=== PATIENT | female | born 1990 ===

== ENCOUNTER 2016-11-26 23:00 | Emergency (ER) | payer SELFPAY ==
[2016-11-26] MEDS ORDERED: Ketorolac 10 MG Tab PO ONE (23:01)
[2016-11-26] MEDS ORDERED: Ketorolac 60 MG/2 ML SDV IM ONE (23:59)
[2016-11-27] MEDS ORDERED: Take Home: Ketorolac 10 MG Tab, 4 Tab Pack PO ONE (00:10)
--- NOTE | 2016-11-27 00:10 | EDM.PDOC ---
ED HPI GENERAL MEDICAL PROBLEM - General Chief Complaint: General Stated Complaint: RIB PAIN Time Seen by Provider: 11/26/16 23:05 Source of Information: Reports: Patient, EMS History Limitations: Reports: No Limitations - History of Present Illness INITIAL COMMENTS - FREE TEXT/NARRATIVE: patient presents to ED with complaints of right rib pain. States fell 3 days ago. Tripped on the curb and landed on her right side. States pain has gotten worse over the last 3 days. Has been taking tylenol and ibuprofen for the discomfort. Denies cough, hemoptysis or injury elsewhere. Does have a small bruise on her cheek, she is unsure if occurred with same event. Onset: Gradual Duration: Day(s): Location: Reports: Chest Quality: Reports: Sharp, Throbbing Severity: Moderate Improves with: Reports: Rest Worsens with: Reports: Movement Right Chest Pain Score (Numeric/FACES): 6 - Related Data Allergies Allergy/AdvReac Type Severity Reaction Status Date / Time No Known Allergies Allergy Verified 11/27/16 05:10 Home Meds: Home Meds . [No Known Home Meds] 12/28/15 [History] Past Medical History - Past Health History Medical/Surgical History: Denies Medical/Surgical History Gastrointestinal History: Reports: GERD WILD [employer] History: Reports: Other OB/BYN History: birthed 2 viable children Psychiatric History: Reports: Anxiety, Depression Social & Family History - Family History Family Medical History: Noncontributory - Tobacco Use Smoking Status *Q: Current Every Day Smoker Years of Tobacco use: 7 Packs/Tins Daily: 0.5 Used Tobacco, but Quit: No Second Hand Smoke Exposure: Yes - Caffeine Use Caffeine Use: Reports: Coffee, Energy Drinks, Soda, Tea - Alcohol Use Days Per Week of Alcohol Use: 0 Number of Drinks Per Day: 0 Total Drinks Per Week: 0 - Recreational Drug Use Recreational Drug Use: No ED ROS GENERAL - Review of Systems Review Of Systems: See Below Constitutional: Denies: Fever, Chills, Malaise, Weakness HEENT: Denies: Ear Discharge, Ear Pain, Rhinitis, Throat Pain, Vertigo Respiratory: Reports: Pleuritic Chest Pain. Denies: Shortness of Breath, Cough Cardiovascular: Denies: Chest Pain, Edema, Lightheadedness Endocrine: Denies: Fatigue GI/Abdominal: Denies: Abdominal Pain, Nausea, Vomiting : Reports: No Symptoms Musculoskeletal: Reports: No Symptoms Skin: Reports: No Symptoms Neurological: Reports: No Symptoms ED EXAM, GENERAL - Physical Exam Exam: See Below Exam Limited By: No Limitations General Appearance: Alert, WD/WN, No Apparent Distress Ears: Normal External Exam, Normal TMs Nose: Normal Inspection, Normal Mucosa, No Blood Throat/Mouth: Normal Inspection, Normal Oropharynx Head: Normocephalic Neck: Normal Inspection, Supple, Non-Tender Respiratory/Chest: No Respiratory Distress, Lungs Clear, Normal Breath Sounds, Other (Patient tender with palpation to right axilla, rib cage. No obvious bruising noted. No swelling.) Cardiovascular: Regular Rate, Rhythm GI/Abdominal: Normal Bowel Sounds, Soft, Non-Tender Extremities: Normal Inspection, Normal Range of Motion Neurological: Alert, Oriented Course - Vital Signs Last Recorded V/S: Last Vital Signs Temp 98.2 F 11/27/16 05:11 Pulse 72 11/27/16 05:11 Resp 18 11/27/16 05:11 BP 114/73 11/27/16 05:11 Pulse Ox 98 11/27/16 05:11 - Orders/Labs/Meds Orders: Active Orders 24 hr Category Date Time Status Ribs 2V w Chest Rt [CR] Stat Exams 11/26/16 23:05 Taken Meds: Medications Discontinued Medications Generic Name Dose Route Start Last Admin Trade Name Aníbal PRN Reason Stop Dose Admin Ketorolac Tromethamine 60 mg 11/26/16 23:59 11/27/16 00:10 Toradol IM 11/27/16 00:00 60 mg ONETIME ONE Administration Ketorolac Tromethamine 1 packet 11/27/16 00:10 11/27/16 00:12 Take Home: Ketorolac 10 Mg, 4 Tab Pack PO 11/27/16 00:11 1 packet ONETIME ONE Administration - Re-Assessments/Exams Free Text/Narrative Re-Assessment/Exam: 11/26/2016 Xrays of chest/ribs negative for fracture. Departure - Departure Time of Disposition: 00:06 Disposition: Home, Self-Care 01 Condition: Good Clinical Impression: Contusion of rib on right side - Discharge Information Referrals: Provider,Unknown [Primary Care Provider] - Forms: ED Department Discharge Additional Instructions: 1. Rest 2. Ice or heat to the area 3. Toradol 10 mg every 6 hours as needed for pain 4. Follow up for any ongoing concerns - My Orders Last 24 Hours: My Active Orders 11/26/16 23:05 Ribs 2V w Chest Rt [CR] Stat - Assessment/Plan Last 24 Hours: My Active Orders 11/26/16 23:05 Ribs 2V w Chest Rt [CR] Stat
[2016-11-27 06:36] VITALS: BP 114/73
== END 2016-11-27 00:15 | disposition home or self-care (01) ==
LOC: CC.ED 23:00
DX: S20.211A Contusion of right front wall of thorax, initial encounter (principal); K21.9 Gastro-esophageal reflux disease without esophagitis; F32.9 Major depressive disorder, single episode, unspecified; F17.210 Nicotine dependence, cigarettes, uncomplicated; W01.0XXA Fall on same level from slipping, tripping and stumbling without subsequent striking against object, initial encounter
CPT/HCPCS: 71101; 96372; 99283; A9270; J1885